=== PATIENT | female | born 1985 | race African-American/Black ===

== ENCOUNTER 2016-09-12 01:36 | Emergency (ER) | payer SELFPAY ==
[~2016-09-12] VITALS: Ht 165.1 cm; Wt 100.0 kg
[~2016-09-12 01:36] MED LIST: IBUP-779 PO; IRON-15 PO; MULT-1146 PO
[2016-09-12] MEDS ORDERED: SODIUM CHLORIDE 0.9% 1,000 ML IV ONE (03:27)
[2016-09-12 03:53] LABS: CLARITY URINE CLEAR (CLEAR); COLOR URINE YELLOW (YELLOW); GLUCOSE URINE NEGATIVE (NEGATIVE); KETONES URINE NEGATIVE (NEGATIVE); LEUKOCYTE ESTERASE URINE NEGATIVE (NEGATIVE); NITRITE URINE NEGATIVE (NEGATIVE); OCCULT BLOOD URINE NEGATIVE (NEGATIVE); PROTEIN URINE NEGATIVE (NEGATIVE); SPECIFIC GRAVITY URINE 1.006 (1.005-1.030); UROBILINOGEN URINE 0.2 E.U./dL (0.2-1.0)
[2016-09-12 04:09] LABS: BASOPHILS % 0.5 % (0.0-2.0); EOSINOPHILS % 2.7 % (0.0-5.0); HEMATOCRIT. 37.8 % (36.0-48.0); HEMOGLOBIN. 12.4 g/dL (12.0-16.0); LYMPHOCYTES % 44.1 % (20.0-50.0); MEAN CORPUSCULAR HEMOGLOBIN 27.6 pg (28.0-32.0); MEAN CORPUSCULAR VOLUME 83.7 fL (81.0-99.0); MEAN PLATELET VOLUME 8.8 fl (7.4-10.4); MONOCYTES % 7.6 % (2.0-8.0); NEUTROPHILS % 45.1 % (40.0-76.0); PLATELET 194 x1000/uL (130-400); RED BLOOD CELL COUNT 4.51 mill/uL (4.2-5.4); RED CELL DISTRIBUTION WIDTH 12.9 % (11.6-14.6)
[2016-09-12 04:24] LABS: CARBON DIOXIDE 25 mEq/L (21-32); CHLORIDE 109 mEq/L (98-107)
[2016-09-12 06:40] VITALS: BP 129/86
== END 2016-09-12 07:23 | disposition home or self-care (01) ==
LOC: ER 01:36
DX: R55 Syncope and collapse (principal); M79.89 Other specified soft tissue disorders; M25.562 Pain in left knee; R51 Headache; Z98.890 Other specified postprocedural states
CPT/HCPCS: 36415; 71010; 73562; 80053; 81003; 81025; 82962; 85025; 93005; 93971; 96360; 96361; 99285; J7030; Z7610

== ENCOUNTER 2017-01-28 02:20 | Emergency (ER) | payer SELFPAY ==
[~2017-01-28] VITALS: Ht 165.1 cm; Wt 105.0 kg
[2017-01-28] MEDS ORDERED: ONDANSETRON 4MG ODT PO ONE (06:30)
[2017-01-28] MEDS ORDERED: KETOROLAC 30MG/ML VIAL IM ONE (06:30)
[2017-01-28 06:41] LABS: CLARITY URINE CLEAR (CLEAR); COLOR URINE YELLOW (YELLOW); KETONES URINE NEGATIVE (NEGATIVE); LEUKOCYTE ESTERASE URINE NEGATIVE (NEGATIVE); NITRITE URINE NEGATIVE (NEGATIVE); OCCULT BLOOD URINE NEGATIVE (NEGATIVE); PROTEIN URINE NEGATIVE (NEGATIVE); SPECIFIC GRAVITY URINE 1.024 (1.005-1.030); UROBILINOGEN URINE 0.2 E.U./dL (0.2-1.0)
[2017-01-28 07:02] LABS: BASOPHILS % 0.9 % (0.0-2.0); EOSINOPHILS % 2.2 % (0.0-5.0); HEMATOCRIT. 40.1 % (36.0-48.0); HEMOGLOBIN. 13.2 g/dL (12.0-16.0); LYMPHOCYTES % 37.3 % (20.0-50.0); MEAN CORPUSCULAR HEMOGLOBIN 27.5 pg (28.0-32.0); MEAN CORPUSCULAR VOLUME 83.4 fL (81.0-99.0); MEAN PLATELET VOLUME 8.4 fl (7.4-10.4); MONOCYTES % 8.4 % (2.0-8.0); NEUTROPHILS % 51.2 % (40.0-76.0); PLATELET 260 x1000/uL (130-400); RED BLOOD CELL COUNT 4.81 mill/uL (4.2-5.4); RED CELL DISTRIBUTION WIDTH 13.4 % (11.6-14.6)
[2017-01-28 07:10] LABS: CARBON DIOXIDE 29 mEq/L (21-32); CHLORIDE 106 mEq/L (98-107)
[2017-01-28 07:30] VITALS: BP 125/72
[2017-01-28] MEDS ORDERED: CEFTRIAXONE SODIUM 250 MG/VIAL IM ONE (08:00)
[2017-01-28] MEDS ORDERED: STERILE WATER FOR INJECTION 10ML VIAL ONE (08:38)
== END 2017-01-28 09:03 | disposition home or self-care (01) ==
LOC: ER 02:20
DX: N73.9 Female pelvic inflammatory disease, unspecified (principal); D25.9 Leiomyoma of uterus, unspecified
CPT/HCPCS: 36415; 80053; 81003; 81025; 84702; 85025; 87210; 87491; 87591; 96372; 99284; A4216; J0696; J1885; Q0162; Z7610

== ENCOUNTER 2017-06-04 23:21 | Emergency (ER) | payer MEDICAID ==
[~2017-06-04] VITALS: Ht 165.1 cm; Wt 103.0 kg
[2017-06-05 00:28] LABS: CLARITY URINE CLEAR (CLEAR); COLOR URINE YELLOW (YELLOW); KETONES URINE TRACE (NEGATIVE); LEUKOCYTE ESTERASE URINE NEGATIVE (NEGATIVE); NITRITE URINE NEGATIVE (NEGATIVE); OCCULT BLOOD URINE NEGATIVE (NEGATIVE); PROTEIN URINE NEGATIVE (NEGATIVE); SPECIFIC GRAVITY URINE 1.022 (1.005-1.030); UROBILINOGEN URINE 0.2 E.U./dL (0.2-1.0)
[2017-06-05 00:53] LABS: BASOPHILS % 0.7 % (0.0-2.0); EOSINOPHILS % 2.1 % (0.0-5.0); HEMATOCRIT. 40.2 % (36.0-48.0); HEMOGLOBIN. 13.4 g/dL (12.0-16.0); LYMPHOCYTES % 35.6 % (20.0-50.0); MEAN CORPUSCULAR HEMOGLOBIN 27.9 pg (28.0-32.0); MEAN CORPUSCULAR VOLUME 83.9 fL (81.0-99.0); MEAN PLATELET VOLUME 8.1 fl (7.4-10.4); MONOCYTES % 7.5 % (2.0-8.0); NEUTROPHILS % 54.1 % (40.0-76.0); PLATELET 249 x1000/uL (130-400); RED BLOOD CELL COUNT 4.79 mill/uL (4.2-5.4); RED CELL DISTRIBUTION WIDTH 13.5 % (11.6-14.6)
[2017-06-05 00:59] LABS: CHLORIDE 108 mEq/L (98-107)
[2017-06-05] MEDS ORDERED: IBUPROFEN 800MG TABLET PO ONE (04:15)
[2017-06-05 05:36] VITALS: BP 109/64
[2017-06-07 05:24] LABS: CHLAMYDIA TRACHOMATIS NAA Negative (Negative); NEISSERIA GONORRHOEAE NAA Negative (Negative)
== END 2017-06-05 05:41 | disposition home or self-care (01) ==
LOC: ER 23:21
DX: R07.89 Other chest pain (principal); N89.8 Other specified noninflammatory disorders of vagina; Z98.890 Other specified postprocedural states
CPT/HCPCS: 36415; 71045; 80053; 81003; 81025; 85025; 87491; 87591; 93005; 99285; Z7610

== ENCOUNTER 2017-10-23 13:07 | Emergency (ER) | payer MEDICAID ==
[~2017-10-23] VITALS: Ht 165.1 cm; Wt 106.0 kg
[2017-10-23] MEDS ORDERED: ACETAMINOPHEN 500MG TABLET PO ONE (15:15)
[2017-10-23] MEDS ORDERED: FLUCONAZOLE 100MG TABLET PO ONE (15:15)
[2017-10-23] MEDS ORDERED: IBUPROFEN 600MG TABLET PO ONE (15:15)
[2017-10-23 18:06] LABS: CLARITY URINE CLEAR (CLEAR); COLOR URINE YELLOW (YELLOW); KETONES URINE TRACE (NEGATIVE); LEUKOCYTE ESTERASE URINE NEGATIVE (NEGATIVE); NITRITE URINE NEGATIVE (NEGATIVE); OCCULT BLOOD URINE NEGATIVE (NEGATIVE); PROTEIN URINE NEGATIVE (NEGATIVE); SPECIFIC GRAVITY URINE 1.011 (1.005-1.030); UROBILINOGEN URINE 0.2 E.U./dL (0.2-1.0)
[2017-10-23 19:01] VITALS: BP 128/79
== END 2017-10-23 19:02 | disposition home or self-care (01) ==
LOC: ER 13:07
DX: N60.01 Solitary cyst of right breast (principal); S46.911A Strain of unspecified muscle, fascia and tendon at shoulder and upper arm level, right arm, initial encounter; N89.8 Other specified noninflammatory disorders of vagina; R07.89 Other chest pain; M25.562 Pain in left knee; R03.0 Elevated blood-pressure reading, without diagnosis of hypertension; X50.3XXA Overexertion from repetitive movements, initial encounter; Y93.89 Activity, other specified; Y92.89 Other specified places as the place of occurrence of the external cause; Y99.8 Other external cause status
CPT/HCPCS: 71045; 81003; 81025; 93005; 99285

== ENCOUNTER 2017-11-16 13:12 | Emergency (ER) | payer MEDICAID ==
[~2017-11-16] VITALS: Ht 165.1 cm; Wt 102.0 kg
[2017-11-16 15:25] LABS: CLARITY URINE CLEAR (CLEAR); COLOR URINE YELLOW (YELLOW); KETONES URINE NEGATIVE (NEGATIVE); LEUKOCYTE ESTERASE URINE NEGATIVE (NEGATIVE); NITRITE URINE NEGATIVE (NEGATIVE); OCCULT BLOOD URINE 2+ (NEGATIVE); PROTEIN URINE NEGATIVE (NEGATIVE); SPECIFIC GRAVITY URINE 1.014 (1.005-1.030); UROBILINOGEN URINE 0.2 E.U./dL (0.2-1.0)
[2017-11-16] MEDS ORDERED: SODIUM CHLORIDE 0.9% 1,000 ML IV ONE (18:10)
[2017-11-16] MEDS ORDERED: MAGNESIUM/ALUMINUM HYDROXIDE/SIMETHICONE 30ML UDC PO ONE (18:15)
[2017-11-16] MEDS ORDERED: FAMOTIDINE 20MG/2ML VIAL IV ONE (18:15)
[2017-11-16 19:04] LABS: *AMPHETAMINES SCREEN URINE NEGATIVE (NEGATIVE); *BARBITURATES SCREEN URINE NEGATIVE (NEGATIVE); *BENZODIAZEPINES SCREEN URINE NEGATIVE (NEGATIVE); *COCAINE SCREEN URINE NEGATIVE (NEGATIVE)
[2017-11-16 19:05] LABS: CANNABINOID URINE SCREEN NEGATIVE (NEGATIVE); METHADONE URINE SCREEN NEGATIVE (NEGATIVE); OPIATES URINE SCREEN NEGATIVE (NEGATIVE); PHENCYCLIDINE URINE SCREEN NEGATIVE (NEGATIVE)
[2017-11-16 19:35] LABS: BASOPHILS % 1.1 % (0.0-2.0); EOSINOPHILS % 1.6 % (0.0-5.0); HEMATOCRIT. 42.1 % (36.0-48.0); HEMOGLOBIN. 14.1 g/dL (12.0-16.0); LYMPHOCYTES % 39.6 % (20.0-50.0); MEAN CORPUSCULAR HEMOGLOBIN 27.9 pg (28.0-32.0); MEAN CORPUSCULAR VOLUME 83.4 fL (81.0-99.0); MEAN PLATELET VOLUME 9.2 fl (7.4-10.4); NEUTROPHILS % 49.7 % (40.0-76.0); PLATELET 235 x1000/uL (130-400); RED BLOOD CELL COUNT 5.05 mill/uL (4.2-5.4); RED CELL DISTRIBUTION WIDTH 13.4 % (11.6-14.6)
[2017-11-16 19:37] LABS: CHLORIDE 105 mEq/L (98-107)
[2017-11-16 19:40] LABS: HCG SCREEN NEGATIVE
[2017-11-16 19:44] LABS: ETHANOL BLOOD < 10 mg/dL
[2017-11-16] MEDS ORDERED: IBUPROFEN 800MG TABLET PO ONE (20:30)
[2017-11-16 21:43] VITALS: BP 125/61
== END 2017-11-16 21:49 | disposition home or self-care (01) ==
LOC: ER 13:12
DX: E86.0 Dehydration (principal); A60.04 Herpesviral vulvovaginitis; R03.0 Elevated blood-pressure reading, without diagnosis of hypertension; Z98.890 Other specified postprocedural states
CPT/HCPCS: 36415; 80053; 80305; 81003; 81025; 82962; 83880; 84484; 84703; 85025; 85379; 93005; 96361; 96374; 99285; G0482; J3490; J7030

== ENCOUNTER 2018-05-08 21:18 | Emergency (ER) | payer MEDICAID, MEDICARE ==
[~2018-05-08] VITALS: Ht 165.1 cm; Wt 97.0 kg
[2018-05-08] MEDS ORDERED: SODIUM CHLORIDE 0.9% 1,000 ML IV ONE (22:06)
[2018-05-08 22:23] LABS: CLARITY URINE CLEAR (CLEAR); COLOR URINE YELLOW (YELLOW); KETONES URINE NEGATIVE (NEGATIVE); LEUKOCYTE ESTERASE URINE NEGATIVE (NEGATIVE); NITRITE URINE NEGATIVE (NEGATIVE); OCCULT BLOOD URINE NEGATIVE (NEGATIVE); PROTEIN URINE NEGATIVE (NEGATIVE); SPECIFIC GRAVITY URINE 1.002 (1.005-1.030); UROBILINOGEN URINE 0.2 E.U./dL (0.2-1.0)
[2018-05-08 22:35] LABS: *AMPHETAMINES SCREEN URINE NEGATIVE (NEGATIVE)
[2018-05-08 22:36] LABS: *BARBITURATES SCREEN URINE NEGATIVE (NEGATIVE); *BENZODIAZEPINES SCREEN URINE NEGATIVE (NEGATIVE); *COCAINE SCREEN URINE NEGATIVE (NEGATIVE); METHADONE URINE SCREEN NEGATIVE (NEGATIVE); OPIATES URINE SCREEN NEGATIVE (NEGATIVE); PHENCYCLIDINE URINE SCREEN NEGATIVE (NEGATIVE)
[2018-05-08 22:37] LABS: CANNABINOID URINE SCREEN NEGATIVE (NEGATIVE)
[2018-05-08 22:46] LABS: BASOPHILS % 0.7 % (0.0-2.0); EOSINOPHILS % 2.3 % (0.0-5.0); HEMATOCRIT. 40.7 % (36.0-48.0); HEMOGLOBIN. 13.4 g/dL (12.0-16.0); LYMPHOCYTES % 37.6 % (20.0-50.0); MEAN CORPUSCULAR HEMOGLOBIN 27.5 pg (28.0-32.0); MEAN CORPUSCULAR VOLUME 83.6 fL (81.0-99.0); MEAN PLATELET VOLUME 8.8 fl (7.4-10.4); NEUTROPHILS % 50.4 % (40.0-76.0); PLATELET 217 x1000/uL (130-400); RED BLOOD CELL COUNT 4.87 mill/uL (4.2-5.4); RED CELL DISTRIBUTION WIDTH 13.1 % (11.6-14.6)
[2018-05-08 22:47] LABS: CHLORIDE 110 mEq/L (98-107)
[2018-05-08 22:49] LABS: PROTHROMBIN TIME 10.3 sec (9.6-11.0)
[2018-05-08 22:55] LABS: CREATINE KINASE 367 IU/L (26-192)
[2018-05-08 22:58] LABS: CREATINE KINASE MB FRACTION 1.3 ng/mL (0.5-3.6)
[2018-05-08] MEDS ORDERED: POTASSIUM CHLORIDE 20MEQ TABLET SR PO ONE (23:15)
[2018-05-09 03:40] VITALS: BP 118/51
== END 2018-05-09 03:45 | disposition home or self-care (01) ==
LOC: ER 21:18
DX: R42 Dizziness and giddiness (principal); R53.1 Weakness; E87.8 Other disorders of electrolyte and fluid balance, not elsewhere classified; E66.9 Obesity, unspecified; Z68.35 Body mass index [BMI] 35.0-35.9, adult; Z88.0 Allergy status to penicillin; Z87.11 Personal history of peptic ulcer disease; Z98.890 Other specified postprocedural states
CPT/HCPCS: 36415; 71045; 80053; 80305; 81003; 81025; 82550; 82553; 83690; 83735; 83880; 84484; 85025; 85610; 93005; 96360; 99284; J7030; Z7610

== ENCOUNTER 2019-01-06 12:37 | Emergency (ER) | payer MEDICAID, MEDICARE ==
[~2019-01-06] VITALS: Ht 165.1 cm; Wt 109.0 kg
[2019-01-06 14:10] VITALS: BP 123/73
== END 2019-01-06 17:54 | disposition home or self-care (01) ==
LOC: ER 12:49
DX: H66.92 Otitis media, unspecified, left ear (principal); J02.9 Acute pharyngitis, unspecified; R05 Cough; R50.81 Fever presenting with conditions classified elsewhere; R53.1 Weakness; R09.89 Other specified symptoms and signs involving the circulatory and respiratory systems; Z88.0 Allergy status to penicillin; Z79.899 Other long term (current) drug therapy; Z98.890 Other specified postprocedural states
CPT/HCPCS: 71045; 81025; 99283

== ENCOUNTER 2019-04-21 09:46 | Emergency (ER) | payer MEDICARE ==
[~2019-04-21] VITALS: Ht 162.6 cm; Wt 100.0 kg
[2019-04-21 11:01] LABS: BASOPHILS % 0.9 % (0.0-2.0); EOSINOPHILS % 2.2 % (0.0-5.0); HEMATOCRIT. 38.3 % (36.0-48.0); HEMOGLOBIN. 12.9 g/dL (12.0-16.0); LYMPHOCYTES % 33.1 % (20.0-50.0); MEAN CORPUSCULAR HEMOGLOBIN 27.9 pg (28.0-32.0); MEAN CORPUSCULAR VOLUME 82.9 fL (81.0-99.0); MEAN PLATELET VOLUME 8.9 fl (7.4-10.4); MONOCYTES % 9.7 % (2.0-8.0); NEUTROPHILS % 54.1 % (40.0-76.0); PLATELET 199 x1000/uL (130-400); RED BLOOD CELL COUNT 4.62 mill/uL (4.2-5.4); RED CELL DISTRIBUTION WIDTH 13.9 % (11.6-14.6)
[2019-04-21 11:07] LABS: CHLORIDE 113 mEq/L (98-107)
[2019-04-21 11:15] LABS: HCG SCREEN NEGATIVE
[2019-04-21 12:30] VITALS: BP 125/68
== END 2019-04-21 14:11 | disposition home or self-care (01) ==
LOC: ER 09:53
DX: R07.89 Other chest pain (principal); N60.01 Solitary cyst of right breast; Z98.890 Other specified postprocedural states; Z79.899 Other long term (current) drug therapy; Z88.0 Allergy status to penicillin
CPT/HCPCS: 36415; 71045; 76642; 80053; 81025; 83880; 84484; 84703; 85025; 93005; 99285

== ENCOUNTER 2019-07-27 11:36 | Emergency (ER) | payer MEDICAID, MEDICARE ==
[~2019-07-27] VITALS: Ht 165.1 cm; Wt 78.0 kg
[2019-07-27 12:33] LABS: BASOPHILS % 0.8 % (0.0-2.0); EOSINOPHILS % 1.3 % (0.0-5.0); HEMATOCRIT. 39.3 % (36.0-48.0); HEMOGLOBIN. 12.8 g/dL (12.0-16.0); LYMPHOCYTES % 26.9 % (20.0-50.0); MEAN CORPUSCULAR HEMOGLOBIN 27.8 pg (28.0-32.0); MEAN PLATELET VOLUME 9.4 fl (7.4-10.4); MONOCYTES % 8.1 % (2.0-8.0); NEUTROPHILS % 62.9 % (40.0-76.0); PLATELET 197 x1000/uL (130-400); RED BLOOD CELL COUNT 4.62 mill/uL (4.2-5.4); RED CELL DISTRIBUTION WIDTH 13.3 % (11.6-14.6)
[2019-07-27 12:41] LABS: CHLORIDE 113 mEq/L (98-107)
[2019-07-27 13:07] LABS: HCG SCREEN NEGATIVE
[2019-07-27 14:59] VITALS: BP 146/76
== END 2019-07-27 15:01 | disposition home or self-care (01) ==
LOC: ER 11:38
DX: R00.2 Palpitations (principal); D64.9 Anemia, unspecified; Z88.0 Allergy status to penicillin
CPT/HCPCS: 36415; 71045; 80053; 82962; 84484; 84703; 85025; 93005; 99285

== ENCOUNTER 2019-12-28 11:20 | Emergency (ER) | payer MEDICAID ==
[~2019-12-28] VITALS: Ht 165.1 cm; Wt 90.0 kg
[2019-12-28 12:12] LABS: BASOPHILS % 0.4 % (0.0-2.0); EOSINOPHILS % 2.2 % (0.0-5.0); HEMATOCRIT. 39.4 % (36.0-48.0); HEMOGLOBIN. 12.8 g/dL (12.0-16.0); LYMPHOCYTES % 32.7 % (20.0-50.0); MEAN CORPUSCULAR VOLUME 82.9 fL (81.0-99.0); MEAN PLATELET VOLUME 8.7 fl (7.4-10.4); NEUTROPHILS % 54.7 % (40.0-76.0); PLATELET 197 x1000/uL (130-400); RED BLOOD CELL COUNT 4.75 mill/uL (4.2-5.4); RED CELL DISTRIBUTION WIDTH 14.6 % (11.6-14.6)
[2019-12-28] MEDS ORDERED: MAGNESIUM/ALUMINUM HYDROXIDE/SIMETHICONE 30ML UDC PO ONE (12:30)
[2019-12-28] MEDS ORDERED: FAMOTIDINE 20MG/2ML VIAL IV ONE (12:30)
[2019-12-28 12:41] LABS: CHLORIDE 112 mEq/L (98-107)
[2019-12-28 15:28] VITALS: BP 109/61
== END 2019-12-28 16:46 | disposition home or self-care (01) ==
LOC: ER 11:30
DX: R10.13 Epigastric pain (principal); R07.9 Chest pain, unspecified; I10 Essential (primary) hypertension; D64.9 Anemia, unspecified; F41.9 Anxiety disorder, unspecified; E78.5 Hyperlipidemia, unspecified; Z88.0 Allergy status to penicillin
CPT/HCPCS: 36415; 71045; 76705; 80053; 81025; 83690; 83880; 84484; 85025; 85379; 93005; 96374; 99285; J3490

== ENCOUNTER 2020-05-11 00:14 | Emergency (ER) | payer MEDICAID, OTHER ==
[~2020-05-11] VITALS: Ht 165.1 cm; Wt 87.1 kg
[2020-05-11] MEDS ORDERED: LORAZEPAM 1MG TABLET PO ONE (01:00)
[2020-05-11 01:28] LABS: BASOPHILS % 0.4 % (0.0-2.0); EOSINOPHILS % 1.6 % (0.0-5.0); HEMATOCRIT. 35.2 % (36.0-48.0); HEMOGLOBIN. 11.7 g/dL (12.0-16.0); LYMPHOCYTES % 35.1 % (20.0-50.0); MEAN CORPUSCULAR HEMOGLOBIN 27.8 pg (28.0-32.0); MEAN CORPUSCULAR VOLUME 83.5 fL (81.0-99.0); MONOCYTES % 9.7 % (2.0-8.0); NEUTROPHILS % 53.2 % (40.0-76.0); PLATELET 204 x1000/uL (130-400); RED BLOOD CELL COUNT 4.21 mill/uL (4.2-5.4); RED CELL DISTRIBUTION WIDTH 13.3 % (11.6-14.6)
[2020-05-11 01:34] LABS: CHLORIDE 110 mEq/L (98-107)
[2020-05-11 01:38] LABS: HCG SCREEN NEGATIVE
[2020-05-11] MEDS ORDERED: IBUPROFEN 600MG TABLET PO ONE (02:15)
[2020-05-11 03:00] VITALS: BP 103/50
== END 2020-05-11 03:15 | disposition home or self-care (01) ==
LOC: ER 00:14
DX: M94.0 Chondrocostal junction syndrome [Tietze] (principal); R00.2 Palpitations; F41.9 Anxiety disorder, unspecified; D64.9 Anemia, unspecified; Z98.890 Other specified postprocedural states; Z88.0 Allergy status to penicillin
CPT/HCPCS: 36415; 71045; 80053; 84484; 84703; 85025; 85379; 99284

== ENCOUNTER 2021-02-16 12:39 | Emergency (ER) | payer MEDICAID, OTHER ==
[~2021-02-16] VITALS: Ht 165.1 cm; Wt 99.0 kg
[2021-02-16 13:29] LABS: BASOPHILS % 0.4 % (0.0-2.0); EOSINOPHILS % 1.9 % (0.0-5.0); HEMATOCRIT. 39.9 % (36.0-48.0); LYMPHOCYTES % 34.7 % (20.0-50.0); MEAN CORPUSCULAR HEMOGLOBIN 26.5 pg (28.0-32.0); MEAN CORPUSCULAR VOLUME 81.3 fL (81.0-99.0); MEAN PLATELET VOLUME 8.6 fl (7.4-10.4); MONOCYTES % 12.7 % (2.0-8.0); NEUTROPHILS % 50.3 % (40.0-76.0); PLATELET 158 x1000/uL (130-400); RED BLOOD CELL COUNT 4.91 mill/uL (4.2-5.4); RED CELL DISTRIBUTION WIDTH 14.4 % (11.6-14.6)
[2021-02-16 13:36] LABS: CHLORIDE 108 mEq/L (98-107)
[2021-02-16 13:53] LABS: HCG SCREEN NEGATIVE
[2021-02-16] MEDS ORDERED: KETOROLAC 30MG/ML VIAL IM ONE (15:30)
[2021-02-16] MEDS ORDERED: NAPR-420 MT (15:40)
[2021-02-16 16:23] VITALS: BP 127/87
== END 2021-02-16 16:25 | disposition home or self-care (01) ==
LOC: ER 12:39
DX: R07.89 Other chest pain (principal)
CPT/HCPCS: 36415; 71045; 80053; 83880; 84484; 84703; 85025; 93005; 96372; 99285; J1885